=== PATIENT | male | born 1945 | race Caucasian/White ===

== ENCOUNTER → 2020-08-21 | Day surgery (SDC) | payer MEDICARE, OTHER ==
[~2020-08-21] MED LIST: AMITRIPTYLINE H10 MG PO; ASPIRIN CHEWABL81 MG PO; BENICAR40 MG PO; CALCIUM500 M1 PO; CARDURA2 MG PO; COLACE100 MG PO; FEOSOL325 MG PO; FLEXERIL10 MG PO; FLONASE ALLER15.8 ML; HCTZ25 MG PO; LASIX40 MG PO; LEVAQUIN500 MG PO; LIPITOR 10MG TA10 MG PO; METFORMIN HCL500 MG PO; METOPROLOL SUCC50 MG PO; MOBIC7.5 MG PO; MOTRIN600 MG PO; NEURONTIN800 MG PO; NORCO 5-325 TA1 EACH PO; NORVASC10 MG PO; OLMESARTAN MEDO40 MG PO; PERCOCET 10-321 EACH PO; PROZAC20 MG PO; SUPER B COMPLE150 MG PO; TOPROL XL 50 MG50 MG PO
[2020-08-21 07:52] LABS: HCT 41.5 % (42.0-52.0); HGB 13.9 g/dl (13.2-18.0); MCH 29.5 pg (25.0-31.0); MCHC 33.5 g/dL (32.0-36.0); MCV 88.1 fL (78.0-100.0); MPV 12.1 fL (6.0-9.5); RBC 4.71 M/uL (4.70-6.00); RDW 12.6 % (11.5-14.0); WBC 6.8 K/uL (4.0-10.5)
[2020-08-21 08:22] LABS: ALBUMIN 3.7 g/dL (3.4-5.0); BILIRUBIN - TOTAL 0.5 mg/dL (0.2-1.0); BUN/CREAT RATIO (CALC) 18.4 RATIO; CREATININE 0.98 mg/dL (0.67-1.17); GLOBULIN (CALCULATION) 3.1 g/dL; POTASSIUM 3.3 mmol/L (3.5-5.1); TOTAL PROTEIN 6.8 g/dL (6.4-8.2)
== END | disposition home or self-care (01) ==
LOC: FAS 06:28
PROVIDERS: Surgery
DX: K57.30 Diverticulosis of large intestine without perforation or abscess without bleeding (principal); K63.89 Other specified diseases of intestine; I25.10 Atherosclerotic heart disease of native coronary artery without angina pectoris; I10 Essential (primary) hypertension; E78.5 Hyperlipidemia, unspecified; E11.9 Type 2 diabetes mellitus without complications; M19.90 Unspecified osteoarthritis, unspecified site; Z79.899 Other long term (current) drug therapy; Z82.49 Family history of ischemic heart disease and other diseases of the circulatory system; Z80.1 Family history of malignant neoplasm of trachea, bronchus and lung; Z83.3 Family history of diabetes mellitus
CPT/HCPCS: 36415; 80053; J1610; J2704; J7120